=== PATIENT | female | born 1995 | race Two or more races ===

== ENCOUNTER 2022-01-17 17:31 | Emergency (ER) | payer OTHER ==
[~2022-01-17] VITALS: Ht 157.5 cm; Wt 70.3 kg
[2022-01-17] MEDS ORDERED: GLYBURIDE2.5 MG (18:18)
[2022-01-17] MEDS ORDERED: PRENATABS RX T1 EACH (18:18)
[2022-01-17] MEDS ORDERED: CHILDREN'S ASPI81 MG (18:18)
== END 2022-01-17 21:43 | disposition home or self-care (01) ==
LOC: ER 17:31
DX: O26.892 Other specified pregnancy related conditions, second trimester (principal); Z3A.21 21 weeks gestation of pregnancy; O24.112 Pre-existing type 2 diabetes mellitus, in pregnancy, second trimester; O34.12 Maternal care for benign tumor of corpus uteri, second trimester

== ENCOUNTER 2022-03-23 11:42 | Inpatient (IN) | payer OTHER ==
[~2022-03-23] VITALS: Ht 157.5 cm; Wt 1.4 kg
[~2022-03-23 11:42] MED LIST: CHILDREN'S ASPI81 MG; GLYBURIDE2.5 MG; PRENATABS RX T1 EACH
[2022-03-23] MEDS ORDERED: HUMALOG100 UNIT/2 SUBCUTANEO (14:01)
[2022-03-23] MEDS ORDERED: LANTUS SOL100 UNIT/1 SUBCUTANEO (14:02)
== END 2022-04-05 20:28 | disposition home or self-care (01) | DRG 788 ==
LOC: OBS/DEL 11:42 → LDR 12:37 → OB/GYN 04-02 11:00 → LDR 04-02 13:09
PROVIDERS: ADMIT Specialist; ATTEND Specialist
PROC: BY4FZZZ Ultrasonography of Third Trimester, Single Fetus (ICD-10-PCS; 2022-03-24)
PROC: 4A1HXCZ Monitoring of Products of Conception, Cardiac Rate, External Approach (ICD-10-PCS; 2022-03-24)
PROC: 10D00Z1 Extraction of Products of Conception, Low, Open Approach (ICD-10-PCS; principal; 2022-03-28 15:00)
PROC: B246ZZZ Ultrasonography of Right and Left Heart (ICD-10-PCS; 2022-03-30)
PROC: BW4GZZZ Ultrasonography of Pelvic Region (ICD-10-PCS; 2022-04-02)
PROC: B54DZZZ Ultrasonography of Bilateral Lower Extremity Veins (ICD-10-PCS; 2022-04-03)
DX: O14.24 HELLP syndrome, complicating childbirth (principal); O24.02 Pre-existing type 1 diabetes mellitus, in childbirth; O60.14X0 Preterm labor third trimester with preterm delivery third trimester, not applicable or unspecified; O10.02 Pre-existing essential hypertension complicating childbirth; E10.8 Type 1 diabetes mellitus with unspecified complications; O40.3XX0 Polyhydramnios, third trimester, not applicable or unspecified; O26.843 Uterine size-date discrepancy, third trimester; O34.13 Maternal care for benign tumor of corpus uteri, third trimester; Z79.4 Long term (current) use of insulin; O99.214 Obesity complicating childbirth; E66.8 Other obesity; Z3A.30 30 weeks gestation of pregnancy; Z37.0 Single live birth; Z20.822 Contact with and (suspected) exposure to COVID-19; O36.8130 Decreased fetal movements, third trimester, not applicable or unspecified